=== PATIENT | male | born 1945 | race Caucasian/White ===

== ENCOUNTER 2021-10-16 15:49 | Emergency (ER) | payer MEDICARE ==
[2021-10-16 16:46] LABS: HEMOGLOBIN 15.7 gm/dl (14.0-17.5); RED BLOOD COUNT 4.9 M/UL (4.20-5.50); WHITE BLOOD COUNT 18.6 K/UL (4.5-11.0)
[2021-10-16 17:29] LABS: BUN/CREATININE RATIO 17 (0-10)
== END 2021-10-16 17:04 | disposition short-term general hospital (02) ==
LOC: ER1 15:49
PROVIDERS: Emergency Medicine
DX: S06.389A Contusion, laceration, and hemorrhage of brainstem with loss of consciousness of unspecified duration, initial encounter (principal); S00.211A Abrasion of right eyelid and periocular area, initial encounter; I10 Essential (primary) hypertension; W19.XXXA Unspecified fall, initial encounter
CPT/HCPCS: 70450; 71045; 72125; 80053; 85025; 85610; 87040; 93005; 96374; 99285